=== PATIENT | male | born 1980 | race Caucasian/White ===

== ENCOUNTER 2023-08-01 21:02 | Outpatient (CLI) | payer MEDICAID, SELFPAY ==
--- NOTE | 2023-08-01 22:26 | CPS ---
Tech unable to change time to 1999 due to registration having to create new M# for this pt after 2099.
== END 2023-08-01 23:59 | disposition home or self-care (01) ==
LOC: SL 21:06
PROVIDERS: PCP Family Medicine; Referring Provider Nurse Practitioner Family; Visit Provider Nurse Practitioner Family
DX: Z00.00 Encounter for general adult medical examination without abnormal findings (principal)
CPT/HCPCS: 95810 ×2

== ENCOUNTER → 2023-08-01 | Outpatient (CLI) | payer MEDICAID, SELFPAY | END | disposition home or self-care (01) | PROVIDERS: PCP Family Medicine; Referring Provider Nurse Practitioner Family; Visit Provider Nurse Practitioner Family | DX: G47.10 Hypersomnia, unspecified (principal); R40.0 Somnolence; R06.83 Snoring; R53.83 Other fatigue; Z79.899 Other long term (current) drug therapy | CPT/HCPCS: 95810 ==

== ENCOUNTER 2024-05-22 22:59 | Emergency (ER) | payer OTHER, SELFPAY ==
[2024-05-22 23:00] VITALS: BP 138/86; PULSE 68; RESP 17; TEMP 36; O2SAT 98; BMI 29.1
[2024-05-22 23:19] VITALS: O2SAT 97
--- NOTE | 2024-05-22 23:42 | EX.ED.DYSGE1 ---
HPI History of Present Illness Chief Complaint: Shortness of Breath Informant: patient and spouse/S.O. Narrative Narrative: Patient is a 43-year-old male with past medical history depression and remote history of asthma. He states that he has been weaning off his Pristiq. He reports that this evening he was sleeping and he awoke with sensation of shortness of breath. He states that he was able to get up and walk into the bathroom and then into the other rooms of the house looking for his and that his symptoms lasted for approximately 1 to 2-minute. He denies chest pain nausea vomiting or diaphoresis. He denies any palpitation. However this is not happened before and secondary to that sensation he presents for evaluation [facility] Medical History (Updated 05/23/24 @ 00:[address] Clinton Galeana, DO) Depression Home Medications ?Medication ?Instructions ?Recorded ?Last Taken ?Type desvenlafaxine succinate 25 mg 25 mg PO QODAY 05/22/24 Unknown History tablet,extended release 24 hr Allergy/AdvReac Type Severity Reaction Status Date / Time No Known Allergies Allergy Verified 05/22/24 23:00 Social History Smoking Status: Never smoker [facility] ED Constitutional Constitutional ED: Denies chills or fever(s) ENT ENT ED: Denies sore throat Cardiovascular Cardiovascular: Denies chest pain, palpitations or racing heartbeat Respiratory/Chest Respiratory/Chest: Reports dyspnea; Denies cough Gastrointestinal Gastrointestinal: Denies abdominal pain, diarrhea, nausea or vomiting Genitourinary Genitourinary ED: Denies dysuria Musculoskeletal Musculoskeletal: Denies myalgias Integumentary Denies rash Neurologic Neurologic: Denies headache(s) Hematologic/Lymphatic Hematologic/Lymphatic: Denies easy bleeding or easy bruising Allergic/Immunologic Allergic/Immunologic ED: Denies mouth swelling or tongue swelling EXAM Physical Exam Const Vital Signs: 05/22/24 23:00 05/22/24 23:19 05/22/24 23:49 Temperature 96.8 F L 97.4 F L Temperature Source Temporal Pulse Rate 68 72 Respiratory Rate 17 18 Respiratory Effort Normal Non-Labored Respiratory Depth Normal Respiratory Pattern Normal Blood Pressure 138/86 H 112/57 L Blood Pressure Mean 103 75 Pulse Ox 98 97 Oxygen Delivery Method Room Air Room Air Positive well nourished and well developed General Appearance ED: well developed; Negative for pallor HEENT HEENT Narrative: No tongue or lip swelling no oral lesions no airway edema or compromise There is cobblestoning noted in the posterior pharynx consistent with sinus drainage No secondary findings to suggest infection Eyes PERRL and EOMs intact bilaterally General Eye ED: Negative for scleral icterus Neck supple and no JVD Neck Narrative: No crepitance palpated Resp normal respiratory effort and clear to auscultation bilaterally Resp Narrative: No nasal flaring retractions tachypnea or accessory muscle use Cardio regular rate and regular rhythm Rate: other Other Details: Heart is regular rate and rhythm without murmurs rubs or gallops Radial and carotid pulses are equal and symmetric Extremity normal to inspection Extremity Narrative: No asymmetric edema no pitting edema negative Homans' sign bilaterally Neuro oriented x3, CN's II-XII intact bilaterally and no sensory deficits noted Sensorium / Orientation: alert Motor Exam: strength 5/5 throughout Psych mental status grossly normal Skin no rashes or lesions noted, no wounds and skin turgor normal General Skin Exam: Negative for jaundice or pallor MDM MDM MDM Narrative Medical decision making narrative: Patient arrived to the ER with no signs of respiratory distress satting 98 to 100% on room air. He reported a bout of shortness of breath that awoke him from sleep but with this had no symptoms such as nausea chest pain or palpitations. Differential diagnosis is for acute coronary syndrome versus cardiac dysrhythmia versus bronchospasm versus mucous plugging versus anxiety versus acute blood loss anemia versus asthma exacerbation versus pneumonia. I discussed with patient that there are multiple reasons for his symptoms that have spontaneous resolved and the safest option is to perform testing such as EKG troponin basic blood work and chest x-ray. The patient states that he no longer has symptoms and since his vitals are stable and his exam does not suggest any acute pathology he does not want any testing performed. Therefore at this time as patient is awake alert and oriented with stable vitals and no hypoxia or increased work of breathing and wishes to have no further testing performed he will be discharged and can follow-up on an outpatient basis History & Record Review Discussion w/independent historian: Patient and Significant other Discharge Plan Triage Chief Complaint: Shortness of Breath ED Provider: Clinton Galeana Dx/Rx/DC Orders Clinical Impression: Dyspnea, History of depression Instructions: ED Dyspnea Prescriptions: No Action desvenlafaxine succinate 25 mg tablet extended release 24 hr 25 mg PO QODAY Primary Care Provider: Sony Leigh Referrals: Car Rubio MD [Non-Staff] - Activity Restrictions/Additional Instructions: If you have any further concerns or worsening of symptoms please return to the hospital for repeat evaluation Print Language: American Disposition Disposition: Home, Self Care Discharge Date/Time: 05/22/24 23:55
[2024-05-22 23:49] VITALS: BP 112/57; PULSE 72; RESP 18; TEMP 36.3; O2SAT 97
== END 2024-05-22 23:55 | disposition home or self-care (01) ==
LOC: ED 23:51
PROVIDERS: Emergency Provider Emergency Medicine; PCP Family Medicine; Visit Provider Emergency Medicine
DX: R06.00 Dyspnea, unspecified (principal); F32.A Depression, unspecified; Z79.899 Other long term (current) drug therapy
CPT/HCPCS: 99282